=== PATIENT | female | born 1950 | race Caucasian/White ===

== ENCOUNTER → 2018-07-19 09:37 | Outpatient (CLI) | payer OTHER, SELFPAY ==
--- NOTE | 2018-07-19 | DI.MG.S_ITS ---
BILATERAL DIGITAL SCREENING MAMMOGRAM 3D/2D WITH CAD WITH AUGMENTATION: 07/19/2018 CLINICAL: Routine screening. Family history of breast cancer. Comparison is made to exams dated: 07/06/2017 mammogram, 05/12/2016 mammogram, and 04/30/2015 mammogram - [facility]. The tissue of both breasts is heterogeneously dense. This may lower the sensitivity of mammography. Current study was also evaluated with a Computer Aided Detection (CAD) system. Bilateral breast implants are stable. No significant masses, calcifications, or other findings are seen in either breast. There has been no significant interval change. IMPRESSION: NEGATIVE There is no mammographic evidence of malignancy. A 1 year screening mammogram is recommended. This exam was interpreted at Station ID: [id number]. NOTE: For mammograms, a report in lay terms will be sent to the patient. Approximately 15% of breast malignancies will not be visualized mammographically. In the management of a palpable breast mass, a negative mammogram must not discourage biopsy of a clinically suspicious lesion. Electronically Signed By: Tera martini/davon:07/19/2018 15:52:07 letter sent: Normal Exam ACR BI-RADS Category 1: Negative 3341F
== END ==
PROVIDERS: Family Provider Family Medicine; PCP Family Medicine; Visit Provider Family Medicine
DX: Z12.31 Encounter for screening mammogram for malignant neoplasm of breast (principal); Z80.3 Family history of malignant neoplasm of breast; Z78.0 Asymptomatic menopausal state; Z90.722 Acquired absence of ovaries, bilateral
CPT/HCPCS: 77063; 77067; 77080

== ENCOUNTER 2018-07-26 08:19 | Day surgery (SDC) | payer OTHER, SELFPAY ==
[2018-07-26 09:22] VITALS: BP 134/89; PULSE 104; RESP 16; TEMP 36.6; O2SAT 100; BMI 31.9
[2018-07-26] MEDS: PROPARACAINE 0.5% OPHTH SOL 2 DROPS EYE-OP (09:30)
[2018-07-26] MEDS: CATARACT EYE COMPOUND (10 DROPS/SYRINGE) 3 DROPS EYE-OP (09:36)
[2018-07-26 09:38] VITALS: BMI 31.9
--- NOTE | 2018-07-26 10:07 | P.OP.PRE_ITS ---
Pre-operative Note Interval Note Changes: No
--- NOTE | 2018-07-26 10:07 | PM.PREOP ---
Pre-operative Note Interval Note Changes: No
--- NOTE | 2018-07-26 10:08 | P.OP_ITS ---
Operative Date/Time/Diagnoses Pre-op diagnosis: Nuclear cataract right eye Procedure & Clinicians Procedure: Cataract Surgery Same procedure as scheduled: Yes Surgeon: Howard Cantu Anesthesia Type: MAC +/- and Sedation Operative Notes Procedure in detail: Patient brought to the operating suite. Tetracaine drops placed in the right eye. Patient was prepped and draped in sterile manner. Wire lid speculum was placed in the eye. Betadine drops were placed on the eye. This was irrigated. Lidocaine jelly was placed on the eye. A paracentesis port was created with a side-port blade. 0.1 mL 1% preservative free lidocaine was injected into the anterior chamber. The anterior chamber was deepened with viscoelastic. 2.6 mm keratome was used to create a temporal clear corneal incision. Cystotome and Utrata forceps were used to create continuous tear capsulorrhexis. Balanced salt solution was used to hydro dissect the nucleus. The phacoemulsification handpiece was inserted and the nucleus was removed using the stop and chop technique. The irrigation aspiration handpiece was inserted and the remaining cortex was removed. Anterior chamber was deepened with viscoelastic. An Schwarz ZCB00 intraocular lens with a power of 18.5 was injected into the capsular bag. Irrigation aspiration handpiece was inserted and the remaining viscoelastic was removed. Incision was hydrated with balanced salt solution and found to be leak free with pressure with Weck- Sophy sponges. 0.1 mL Vigamox injected anterior chamber. 0.3 mL Kenalog 10 mg was injected subconjunctivally. Lid speculum was removed. The patient left the operating room in excellent condition. Complications: none Condition: stable Disposition: same day surgery
[2018-07-26] MEDS: PHENYLEPHRINE/LIDOCAINE VIAL (OR) 0.2 ML EYE-OP (10:21)
[2018-07-26] MEDS: MOXIFLOXACIN OPHTH DROPS 3 ML BOTTLE 2 DROPS INJ (10:21)
[2018-07-26] MEDS: CHONDROIDTIN/SOD HYALURONATE 1.05 ML SYRINGE INTRAOCULA (10:22)
[2018-07-26] MEDS: LIDOCAINE JELLY 2% 5 ML 1 APPLIC TOP (10:22)
[2018-07-26] MEDS: TRIAMCINOLONE 50 MG/5 ML VIAL INJ (10:22)
[2018-07-26] MEDS: TETRACAINE 0.5% OPHTH DROPS 15 ML 2 DROPS EYE-RIGHT (10:23)
[2018-07-26] MEDS: BALANCED SALT IRRIG SOLN NO.2 500 ML, EPINEPHrine 1 MG IRR (10:23)
[2018-07-26 10:37] VITALS: BP 143/86; PULSE 99; RESP 16; TEMP 36.6; O2SAT 99
== END 2018-07-26 10:45 ==
LOC: OR 08:21
PROVIDERS: PCP Family Medicine; Visit Provider Ophthalmology
DX: H25.11 Age-related nuclear cataract, right eye (principal); I10 Essential (primary) hypertension; M79.7 Fibromyalgia; R51 Headache
CPT/HCPCS: J0171; J2250; J3010; J3301

== ENCOUNTER 2018-08-09 07:24 | Day surgery (SDC) | payer OTHER, SELFPAY ==
[2018-08-09] MEDS: PROPARACAINE 0.5% OPHTH SOL 2 DROPS EYE-OP (07:50)
[2018-08-09 07:51] VITALS: BP 147/90; PULSE 90; RESP 16; TEMP 36.2; O2SAT 100; BMI 31.9
[2018-08-09] MEDS: CATARACT EYE COMPOUND (10 DROPS/SYRINGE) 3 DROPS EYE-OP (07:54)
--- NOTE | 2018-08-09 08:56 | P.OP.PRE_ITS ---
Pre-operative Note Interval Note Changes: No
--- NOTE | 2018-08-09 08:56 | PM.PREOP ---
Pre-operative Note Interval Note Changes: No
--- NOTE | 2018-08-09 08:59 | P.OP_ITS ---
Operative Date/Time/Diagnoses Pre-op diagnosis: Nuclear Cataract Left eye Post-op diagnosis: same Procedure & Clinicians Surgeon: Howard Cantu Anesthesia Type: MAC +/- and Sedation Operative Notes Procedure in detail: Patient brought to the operating suite. Tetracaine drops placed in the left eye. Patient was prepped and draped in sterile manner. Wire lid speculum was placed in the eye. Betadine drops were placed on the eye. This was irrigated. Lidocaine jelly was placed on the eye. A paracentesis port was created with a side-port blade. 0.1 mL 1% preservative free lidocaine was injected into the anterior chamber. The anterior chamber was deepened with viscoelastic. 2.6 mm keratome was used to create a temporal clear corneal incision. Cystotome and Utrata forceps were used to create continuous tear capsulorrhexis. Balanced salt solution was used to hydro dissect the nucleus. The phacoemulsification handpiece was inserted and the nucleus was removed using the stop and chop technique. The irrigation aspiration handpiece was inserted and the remaining cortex was removed. Anterior chamber was deepened with viscoelastic. An Schwarz ZCB00 intraocular lens with a power of 18.5 was injected into the capsular bag. Irrigation aspiration handpiece was inserted and the remaining viscoelastic was removed. Incision was hydrated with balanced salt solution and found to be leak free with pressure with Weck- Sophy sponges. 0.1 mL Vigamox injected anterior chamber. 0.3 mL Kenalog 10 mg was injected subconjunctivally. Lid speculum was removed. The patient left the operating room in excellent condition. Complications: none Condition: stable Disposition: same day surgery
[2018-08-09] MEDS: CHONDROIDTIN/SOD HYALURONATE 1.05 ML SYRINGE INTRAOCULA (09:07)
[2018-08-09] MEDS: LIDOCAINE JELLY 2% 5 ML 1 APPLIC TOP (09:07)
[2018-08-09] MEDS: MOXIFLOXACIN OPHTH DROPS 3 ML BOTTLE 2 DROPS INJ (09:08)
[2018-08-09] MEDS: PHENYLEPHRINE/LIDOCAINE VIAL (OR) 0.2 ML EYE-OP (09:08)
[2018-08-09] MEDS: TRIAMCINOLONE 50 MG/5 ML VIAL INJ (09:09)
[2018-08-09] MEDS: TETRACAINE 0.5% OPHTH DROPS 15 ML 2 DROPS EYE-LEFT (09:09)
[2018-08-09] MEDS: BALANCED SALT IRRIG SOLN NO.2 500 ML, EPINEPHrine 1 MG IRR (09:10)
[2018-08-09 09:25] VITALS: BP 125/82; PULSE 86; RESP 16; TEMP 36.2; O2SAT 99
== END 2018-08-09 09:33 ==
LOC: OR 07:25
PROVIDERS: PCP Family Medicine; Visit Provider Ophthalmology
DX: H25.12 Age-related nuclear cataract, left eye (principal); I10 Essential (primary) hypertension; M79.7 Fibromyalgia; R51 Headache
CPT/HCPCS: J0171; J2250; J3010; J3301

== ENCOUNTER → 2018-09-16 09:17 | Outpatient (CLI) | payer OTHER, SELFPAY ==
--- NOTE | 2018-09-16 | DI.ECHO.S_ITS ---
[place] [facility]---------+ [facility] +---------+ : : [id number] : : : : [id number] : : : : Phone: [phone] Echocardiogram Report + + :Name: YONAS ALEX Study Date: 09/16/2018 Height: 68 in : :[facility] Weight: 213 lb : : Gender: Female BSA: 2.1 m2 : :: 1950 Age: 67 yrs BP: 146/72 mmHg: :Reason For Study: Syncope : :Ordering Physician: : :Adilene Kim Performed By: Carmen Dobbins : + + Interpretation Summary The left ventricle is normal in size. The ejection fraction is estimated to be 55-60%. There has been no significant change since the previous study. There are no focal wall motion abnormalities. Diastolic parameters suggest a relaxation abnormality of the left ventricle, consistent with probable normal filling pressures. The right ventricle is normal in size and function. Both atria are normal in size. There is no significant valvular heart disease. The aortic root is normal size. Procedure: A two-dimensional transthoracic echocardiogram with color flow and Doppler was performed. The study quality was technically adequate. Comparison is made with the echocardiogram of 04/24/2011. The patient was in normal sinus rhythm during the exam. Left Ventricle: The left ventricle is normal in size. There is moderate proximal septal thickening noted. There is normal left ventricular wall thickness. The ejection fraction is estimated to be 55-60%. There has been no significant change since the previous study. There are no focal wall motion abnormalities. Diastolic parameters suggest a relaxation abnormality of the left ventricle, consistent with probable normal filling pressures. Right Ventricle: The right ventricle is normal in size and function. Atria: Both atria are normal in size. There is no Doppler evidence for an interatrial shunt. Mitral Valve: The mitral valve is normal in structure and function. There is trace mitral regurgitation. Aortic Valve: The aortic valve is trileaflet. The aortic valve opens well. There is trace aortic regurgitation. Tricuspid Valve: The tricuspid valve leaflets are thin and pliable. There is trace tricuspid regurgitation. The right ventricular systolic pressure is estimated to be at least 30 mmHg based on an estimated right atrial pressure of 8 mm Hg. Pulmonic Valve: The pulmonic valve leaflets are thin and pliable; valve motion is normal. There is mild pulmonic regurgitation. There is no significant valvular heart disease. Great Vessels: The aortic root is normal size. The ascending aorta is at the upper limits of normal in size. The aortic arch is normal in size. The IVC is of normal diameter and collapses less than 50% with a sniff. This suggests a right atrial pressure of 8 mm Hg. Pericardium/ Pleura There is no pericardial effusion. MMode/2D Measurements & Calculations LVIDd: 4.2 cm LVOT diam: 2.2 cm LVIDs: 2.8 cm Ao root diam: 3.1 cm FS: 31.8 % Aortic Jxn: 2.8 cm EPSS: 0.51 cm asc Aorta Diam: 3.3 cm IVSd: 0.92 cm Ao Arch Diam (Prox Trans): 2.9 cm LVPWd: 1.1 cm LV figueroa. diameter/BSA (cm/m^2): 2.0 LV sys. diameter/BSA (cm/m^2): 1.4 LA A2 area: 15.7 cm2 RA long axis: 4.4 cm LA A4 area: 18.6 cm2 RA area: 9.8 cm2 LA length (vol): 4.7 cm RA vol: 18.5 ml LA vol: 52.8 ml RA : 8.8 ml/m2 LA vol index: 25.1 ml/m2 IVC diam: 1.2 cm RVD1 (basal): 3.0 cm RVD2 (mid): 2.7 cm TAPSE: 1.8 cm Doppler Measurements & Calculations Ao V2 max: 91.3 cm/sec LVOT Max Kenroy: 83.0 cm/sec Ao V2 mean: 61.4 cm/sec LV V1 max P.8 mmHg Ao max P.3 mmHg LV V1 VTI: 17.1 cm Ao mean P.7 mmHg GOLD(I,D): 3.1 cm2 Ao V2 VTI: 20.4 cm GOLD(V,D): 3.4 cm2 sev ratio: 0.84 GOLD indexed to BSA (cm^2/m^2): 1.5 MV E max kenroy: 53.7 cm/sec TR max kenroy: 231.6 cm/sec MV A max kenroy: 74.8 cm/sec TR max P.5 mmHg MV E/A: 0.72 PA V2 max: 88.3 cm/sec Med Peak E' Kenroy: 7.3 cm/sec PA V2 mean: 55.1 cm/sec E/E' med: 7.4 PA mean P.4 mmHg MV dec time: 0.16 sec PA Accel Time: 0.11 sec MV P1/2t: 47.6 msec MV /2t max kenroy: 54.0 cm/sec SV(LVOT): 64.3 ml MVA(2t): 4.6 cm2 Reading Physician:CATALINA
== END ==
PROVIDERS: PCP Family Medicine; Visit Provider Family Medicine
DX: I37.1 Nonrheumatic pulmonary valve insufficiency (principal); R55 Syncope and collapse
CPT/HCPCS: 93306

== ENCOUNTER → 2018-11-25 09:39 | Outpatient (CLI) | payer OTHER, SELFPAY ==
--- NOTE | 2018-11-25 | DI.CT.S_ITS ---
PROCEDURE: CT SINUS SCREEN WO CON INDICATIONS: SINUSITIS TECHNIQUE: Noncontrast 3.0 mm axial images acquired from the frontal sinuses to the mid-sella, with coronal and sagittal reformats. For radiation dose reduction, the following was used: automated exposure control, adjustment of mA and/or kV according to patient size. COMPARISON: None. FINDINGS: Image quality: Excellent. Maxillary Sinuses: No bony remodeling or destruction. Sinuses are clear. Ethmoid Air Cells: No bony remodeling or destruction. Sinuses are clear. Sphenoid Sinuses: No bony remodeling or destruction. Sinuses are clear. Frontal Sinuses: No bony remodeling or destruction. Sinuses are clear. Ostiomeatal Complexes: Ostiomeatal complexes are patent. No Dinorah cells. Miscellaneous: Visualized intra-orbital contents are normal. No abraham bullosa or paradoxical turbinate curvature. No nasal septal deviation. IMPRESSION: Unremarkable sinuses. No evidence of acute or chronic sinusitis. Dictated by: Richi Panchal M.D. on 11/25/2018 at 9:16 Approved by: Richi Panchal M.D. on 11/25/2018 at 9:17
== END ==
PROVIDERS: PCP Family Medicine; Visit Provider Family Medicine
DX: J32.9 Chronic sinusitis, unspecified (principal)
CPT/HCPCS: 70486

== ENCOUNTER → 2019-07-14 12:14 | Outpatient (CLI) | payer OTHER, SELFPAY ==
--- NOTE | 2019-07-14 | DI.CT.S_ITS ---
PROCEDURE: CT ABDOMEN PELVIS W CON INDICATIONS: ABDOMINAL PAIN TECHNIQUE: After the administration of oral and intravenous contrast, 5 mm thick sections acquired from the diaphragms to the symphysis. 5 mm thick coronal and sagittal reformats were performed. For radiation dose reduction, the following was used: automated exposure control, adjustment of mA and/or kV according to patient size. COMPARISON: [facility], CT, ABDOMEN/PELVIS WITH CONTRAST, 05/29/2013, 13:17. [facility], CT, ABDOMEN/PELVIS WITH CONTRAST, 10/11/2007, 15:43. FINDINGS: Image quality: Excellent. ABDOMEN: Lung bases: Lung bases are clear. Heart size is normal. Partially visualized bilateral breast implants without evidence of implant rupture. Solid organs: Liver is normal in size and enhancement. Gallbladder has been previously resected. Biliary system is non-dilated. Pancreas enhances normally. Spleen is normal in size and enhancement. No adrenal nodules. Kidneys are normal in size and enhancement, without hydronephrosis. Peritoneum and bowel: Stomach, small bowel, and colon loops are normal in caliber and wall thickness. No free fluid or air. Surgical clips at the right lower quadrant and near the hepatic flexure of the right colon suggest partial prior colectomy and probable prior ileocolonic reanastomosis. Nodes and vessels: No retroperitoneal or mesenteric adenopathy. Aorta and inferior vena cava are normal in caliber. Miscellaneous: No ventral hernias. PELVIS: Genitourinary: Bladder wall thickness is normal. At the left perineum there is an ovoid soft tissue fluid collection sharply demarcated and without hyperemia or adjacent soft tissue fatty edema measuring up to 3.3 cm AP and 2.3 cm transverse (series 2 image 98). Prior hysterectomy. Miscellaneous: No inguinal hernias or adenopathy. Bones: No suspicious bony lesions. No vertebral body compression fractures. IMPRESSION: 1. A definite source of abdominal/pelvic pain is not found. 2. There is a pattern of right-sided pericolonic surgical nina and clips indicating likelihood of prior partial right colectomy and ileocolonic anastomosis. No adenopathy is seen, no operative complication is suspected. 3. Presumed Bartholin's gland cyst left perineum region, measuring up to 3.3 x 2.3 cm. No associated inflammation identified. Dictated by: Dano Fournier M.D. on 07/14/2019 at 14:15 Approved by: Dano Fournier M.D. on 07/14/2019 at 14:20
== END ==
PROVIDERS: PCP Family Medicine; Visit Provider Family Medicine
DX: R10.9 Unspecified abdominal pain (principal)
CPT/HCPCS: 74177; Q9967

== ENCOUNTER → 2019-08-17 11:31 | Outpatient (CLI) | payer OTHER, SELFPAY ==
--- NOTE | 2019-08-17 | DI.MG.S_ITS ---
BILATERAL DIGITAL SCREENING MAMMOGRAM 3D/2D WITH CAD WITH AUGMENTATION: 08/17/2019 CLINICAL: Routine screening. Family history of breast cancer. Comparison is made to exams dated: 07/19/2018 mammogram, 07/06/2017 mammogram, and 05/12/2016 mammogram - [facility]. The tissue of both breasts is heterogeneously dense. This may lower the sensitivity of mammography. Current study was also evaluated with a Computer Aided Detection (CAD) system. Bilateral breast implants are stable. There are benign post operative findings in both breasts. No significant masses, calcifications, or other findings are seen in either breast. There has been no significant interval change. IMPRESSION: There is no mammographic evidence of malignancy. A 1 year screening mammogram is recommended. This exam was interpreted at Station ID: [id number]. NOTE: For mammograms, a report in lay terms will be sent to the patient. Approximately 15% of breast malignancies will not be visualized mammographically. In the management of a palpable breast mass, a negative mammogram must not discourage biopsy of a clinically suspicious lesion. Electronically Signed By: Tera martini/davon:08/17/2019 15:42:09 letter sent: Normal Exam ACR BI-RADS Category 2: Benign Finding(s) 3342F
== END ==
PROVIDERS: PCP Family Medicine; Visit Provider Family Medicine
DX: Z12.31 Encounter for screening mammogram for malignant neoplasm of breast (principal); Z80.3 Family history of malignant neoplasm of breast
CPT/HCPCS: 77063; 77067

== ENCOUNTER → 2020-12-11 10:07 | Outpatient (CLI) | payer OTHER, SELFPAY ==
--- NOTE | 2020-12-11 10:08 | DI.MG.S_ITS ---
BILATERAL DIGITAL SCREENING MAMMOGRAM 3D/2D WITH CAD WITH AUGMENTATION: 12/11/2020 CLINICAL: Routine screening. Family history of breast cancer. Comparison is made to exams dated: 08/17/2019 mammogram, 07/19/2018 mammogram, and 07/06/2017 mammogram - [facility]. The tissue of both breasts is heterogeneously dense. This may lower the sensitivity of mammography. Current study was also evaluated with a Computer Aided Detection (CAD) system. Bilateral breast implants are stable. There are benign calcifications in the left breast. There also are benign post operative findings in both breasts. No significant masses, calcifications, or other findings are seen in either breast. There has been no significant interval change. IMPRESSION: BENIGN There is no mammographic evidence of malignancy. A 1 year screening mammogram is recommended. This exam was interpreted at Station ID: [id number]. NOTE: For mammograms, a report in lay terms will be sent to the patient. Approximately 15% of breast malignancies will not be visualized mammographically. In the management of a palpable breast mass, a negative mammogram must not discourage biopsy of a clinically suspicious lesion. Electronically Signed By: Tera martini/davon:12/11/2020 10:46:56 letter sent: Normal Exam ACR BI-RADS Category 2: Benign Finding(s) 3342F
== END ==
PROVIDERS: PCP Family Medicine; Referring Provider Family Medicine; Visit Provider Family Medicine
DX: Z12.31 Encounter for screening mammogram for malignant neoplasm of breast (principal); Z80.3 Family history of malignant neoplasm of breast
CPT/HCPCS: 77063; 77067

== ENCOUNTER → 2021-05-20 11:06 | Outpatient (CLI) | payer OTHER, SELFPAY ==
--- NOTE | 2021-05-20 | DI.MRI.S_ITS ---
PROCEDURE: MR HEAD/BRAIN WO CON INDICATIONS: Repeated falls TECHNIQUE: Noncontrast axial T1 spin echo, axial T2 fast spin echo, sagittal and axial FLAIR, coronal T2 fast spin echo, axial gradient echo, axial diffusion and ADC through the brain. COMPARISON: [facility], MR, BRAIN WITHOUT CONTRAST, 06/27/2013, 14:10. FINDINGS: Image quality: Excellent. CSF Spaces: Basal cisterns are patent. No extra-axial fluid collections. Ventricles are normal in size and shape. Brain: No intracranial masses or hemorrhage. Mercer/white matter interface is normal. Brainstem appears normal. Diffusion-weighted images demonstrate no acute ischemic insult. No chronic ischemic insults. Normal intravascular flow voids are present. Skull and face: Calvarium has normal marrow signal. Orbits appear normal. Sinuses: Sinuses and mastoids are clear. IMPRESSION: Mild microvascular atherosclerotic change in the deep white matter of each hemisphere. No evidence of trauma, mass, prior stroke, or intracranial hemorrhage. Etiology of repeated falls is not identified, no trauma from falls is found. Dictated by: Dano Fournier M.D. on 05/20/2021 at 11:45 Approved by: Dano Fournier M.D. on 05/20/2021 at 11:46
== END ==
PROVIDERS: PCP Family Medicine; Referring Provider Family Medicine; Visit Provider Family Medicine
DX: R29.6 Repeated falls (principal); R51.9 Headache, unspecified; R26.89 Other abnormalities of gait and mobility
CPT/HCPCS: 70551

== ENCOUNTER → 2021-06-05 15:18 | Outpatient (CLI) | payer OTHER, SELFPAY ==
--- NOTE | 2021-06-05 15:25 | DI.RAD.S_ITS ---
PROCEDURE: XR HIP W PEL IF DONE RT 2V INDICATIONS: RIGHT HIP AND KNEE PAIN S/P FALL TECHNIQUE: AP pelvis with lateral view(s) of the right hip(s). COMPARISON: None. FINDINGS: Bones: No fractures or dislocations. Pelvic ring appears intact. No suspicious bony lesions. Soft tissues: The visualized bowel gas pattern is normal. No suspicious soft tissue calcifications. IMPRESSION: No trauma found. 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 Dictated by: Dano Fournier M.D. on 06/05/2021 at 16:21 Approved by: Dano Fournier M.D. on 06/05/2021 at 16:22
--- NOTE | 2021-06-05 15:25 | DI.RAD.S_ITS ---
PROCEDURE: XR KNEE RT 3V INDICATIONS: RIGHT HIP, KNEE PAIN S/P FALL TECHNIQUE: 3 views of the knee were acquired. COMPARISON: [facility], , KNEE 3V RIGHT, 09/26/2013, 12:09. FINDINGS: Bones: No fractures or dislocations. No suspicious bony lesions. Superior patellar spur. Lateral patellar tilt. Mild narrowing of the medial joint space. Soft tissues: No joint effusion. No suspicious soft tissue calcifications. IMPRESSION: Mild right knee joint degeneration. Slight interval progression since 09/26/13. Dictated by: Matteo Lombardi M.D. on 06/05/2021 at 16:24 Approved by: Matteo Lombardi M.D. on 06/05/2021 at 16:24
== END ==
PROVIDERS: PCP Family Medicine; Referring Provider Family Medicine; Visit Provider Family Medicine
DX: R29.6 Repeated falls (principal); M25.551 Pain in right hip; M25.561 Pain in right knee; M17.11 Unilateral primary osteoarthritis, right knee; M16.0 Bilateral primary osteoarthritis of hip
CPT/HCPCS: 73502; 73562

== ENCOUNTER → 2021-07-31 13:38 | Outpatient (CLI) | payer OTHER, SELFPAY ==
--- NOTE | 2021-07-31 | DI.MRI.S_ITS ---
PROCEDURE: MR HIP RT W CON INDICATIONS: RIGHT HIP PAIN TECHNIQUE: After the administration of 10 mL of dilute intra-articular Gadolinium contrast, coronal STIR of the bony pelvis; coronal and oblique axial T1 spin echo with fat saturation, axial T2 fast spin echo with fat saturation, sagittal T1 spin echo with and without fat saturation of the involved hip. COMPARISON: None. FINDINGS: Image quality: Excellent. Bones and joints: Mild to moderate right hip joint osteoarthritic changes are seen with superior joint space narrowing and subchondral sclerosis. Lateral marginal osteophyte formation is noted in superior right hip joint which can be seen associated with pincer type femoral acetabular impingement. No intraosseous lesions or fractures. No avascular necrosis of the femoral head. The visualized lower lumbar spine appears normally aligned. The ligamental, neck, and labral plicae appear normal where visualized. Tendons and ligaments: The gluteus medius and minimus tendons appear intact, without associated muscle atrophy. The nearby proximal iliotibial band also appears intact. The iliopsoas tendon appears intact, without adjacent bursal fluid collections or evidence for impingement syndrome. The origin of the hamstring tendon is intact at the ischial tuberosity, as well as the associated sacrotuberous ligament. The straight and reflected heads of the rectus femoris muscle origin appear intact, as well as the conjoint tendon. The ligamentum teres appears intact where visualized. Labrum and cartilage: Signal abnormality and contour irregularity involving superior anterior right hip labrum is seen suggestive of superior anterior labral tear. Thinning of articulating cartilages of femoral head is seen. The alpha angle of the femur is within normal limits at less than 55 degrees. Soft tissues: Visualized muscles demonstrate normal bulk and internal signal. Quadratus femoris muscle demonstrates no internal edema to suggest ischiofemoral impingement. The proximal sciatic neurovascular bundle appears normal adjacent to the hamstring tendons. No free pelvic fluid. Bladder wall thickness is normal. Genitourinary structures and bowel loops appear normal where visualized. IMPRESSION: 1. 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 No fracture or dislocation. No evidence of avascular necrosis of femoral head. 2. No gross muscle or tendon signal abnormality is seen in right hip. 3. Contour irregularity and signal abnormality with subtle contrast extension in superior anterior right hip labrum concerning for focal labral tear. Dictated by: Naresh Crowell M.D. on 07/31/2021 at 16:54 Approved by: Naresh Crowell M.D. on 07/31/2021 at 16:57
--- NOTE | 2021-07-31 | DI.RAD.S_ITS ---
PROCEDURE: FL HIP INJECTION MR/CT RT INDICATIONS: RIGHT HIP PAIN TECHNIQUE: The indications, alternatives, benefits, risks, and complications of the procedure were explained to the patient. Written informed consent was obtained and placed in the chart. The hip was examined fluoroscopically with the legs fixed in slight internal rotation, and a site for needle placement chosen for entry into the hip joint from an anterior approach. Care was taken to locate the common femoral artery and vein beforehand. The skin was prepped and draped in a sterile fashion, and 1% Lidocaine infiltrated from skin down to joint capsule. A spinal needle was inserted into the joint, and a small amount of iodinated contrast media injected to confirm intra-articular placement of the needle tip. This was followed by approximately 10 mL dilute solution of a gadolinium containing MR contrast agent. The needle was removed and a dressing was applied. The patient was given postprocedural instructions and sent to the MR suite for imaging. COMPARISON: [facility], , MR HIP RT W CON, 07/31/2021, 14:57. FINDINGS: A single fluoroscopic spot image demonstrates intra-articular location of injected iodinated contrast. IMPRESSION: Successful fluoroscopically guided administration of dilute Gadolinium solution into the hip joint for MR arthrogram. Dictated by: Patria Pak M.D. on 07/31/2021 at 18:15 Approved by: Patria Pak M.D. on 07/31/2021 at 18:16
== END ==
PROVIDERS: PCP Family Medicine; Referring Provider Physician Assistant; Visit Provider Physician Assistant
DX: M25.551 Pain in right hip (principal)
CPT/HCPCS: 27093; 73722; 77002

== ENCOUNTER → 2021-09-10 14:08 | Outpatient (CLI) | payer OTHER, SELFPAY ==
--- NOTE | 2021-09-10 | DI.CT.S_ITS ---
PROCEDURE: CT PEL WO CON INDICATIONS: Other specified joint disorders, unspecified hip TECHNIQUE: Noncontrast 3 mm axial sections acquired through the bony pelvis, with coronal and sagittal reformatting. COMPARISON: [facility], CT, CT ABDOMEN PELVIS W CON, 07/14/2019, 13:01. [facility], MR, MR HIP RT W CON, 07/31/2021, 14:57. FINDINGS: Image quality: Excellent. Bones: No acute, displaced fracture or dislocation. Mild to moderate periarticular osteophytosis about the bilateral hips. The joint spaces are maintained. Disc osteophyte complex at L5-S1. Articulation of the L4-5 spinous processes. Soft tissues: No significant abnormality. Fatty atrophy of the right rectus muscle. IMPRESSION: No acute osseous abnormality. Dictated by: Joe Jeffrey M.D. on 09/10/2021 at 14:39 Approved by: Joe Jeffrey M.D. on 09/10/2021 at 14:45
== END ==
PROVIDERS: PCP Family Medicine; Referring Provider Orthopaedic Surgery; Visit Provider Orthopaedic Surgery
DX: M25.859 Other specified joint disorders, unspecified hip (principal)
CPT/HCPCS: 72192

== ENCOUNTER → 2022-01-13 07:48 | Outpatient (CLI) | payer OTHER, SELFPAY ==
--- NOTE | 2022-01-13 | DI.MG.S_ITS ---
BILATERAL DIGITAL SCREENING MAMMOGRAM 3D/2D WITH CAD WITH AUGMENTATION: 01/13/2022 CLINICAL: Routine screening. Family history of breast cancer. Comparison is made to exams dated: 12/11/2020 mammogram, 08/17/2019 mammogram, 07/19/2018 mammogram, and 07/06/2017 mammogram - [facility]. There are scattered fibroglandular elements in both breasts. Current study was also evaluated with a Computer Aided Detection (CAD) system. Bilateral breast implants are stable and intact. There are benign calcifications in the left breast. No significant masses, calcifications, or other findings are seen in either breast. There has been no significant interval change. IMPRESSION: BENIGN There is no mammographic evidence of malignancy. A 1 year screening mammogram is recommended. This exam was interpreted at Station ID: [id number]. NOTE: For mammograms, a report in lay terms will be sent to the patient. Approximately 15% of breast malignancies will not be visualized mammographically. In the management of a palpable breast mass, a negative mammogram must not discourage biopsy of a clinically suspicious lesion. Electronically Signed By: Panda partida/davon:01/13/2022 08:49:42 letter sent: Normal Exam ACR BI-RADS Category 2: Benign Finding(s) 3342F
== END ==
PROVIDERS: PCP Family Medicine; Referring Provider Family Medicine; Visit Provider Family Medicine
DX: Z12.31 Encounter for screening mammogram for malignant neoplasm of breast (principal); Z80.3 Family history of malignant neoplasm of breast
CPT/HCPCS: 77063; 77067

== ENCOUNTER → 2022-01-28 11:10 | Outpatient (CLI) | payer OTHER, SELFPAY ==
--- NOTE | 2022-02-11 10:44 | PM.CARDMON.1 ---
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 Date Patient Seen: 01/28/22 Requesting provider: Adilene Kim Indication: Tachycardia Duration of monitoring (days): 7 Diary information: There were 6 patient triggered events and 7 patient diary entries All of these patient events were variably associated with (within 45 seconds) sinus rhythm and PVCs Data: Minimum heart rate identified was 66 beats per minute at 19:59 on 01/31/2022 Maximum sinus heart rate was 151 beats per minute at 17:45 on 01/30/2022 Maximum overall heart rate was 169 beats per minute at 08:06 on 02/03/2022 during a run of SVT Less than 1% of identified beats were ventricular or supraventricular ectopic in origin, which would classify them as rare. There were 5 runs of SVT the longest being 7 beats in duration the fastest being a 5 beat run at 169 beats per minute There were no pauses of 3 seconds or longer or episodes of atrial fibrillation identified on this study Impression: 7 day playground monitor demonstrating rare PVCs as a possible source of patient's symptoms. Clinical correlation suggested
== END ==
PROVIDERS: Family Provider Family Medicine; PCP Family Medicine; Referring Provider Family Medicine; Visit Provider Family Medicine
DX: R00.0 Tachycardia, unspecified (principal)
CPT/HCPCS: 93242; 93244

== ENCOUNTER → 2022-04-09 10:19 | Outpatient (CLI) | payer OTHER, SELFPAY ==
--- NOTE | 2022-04-09 | DI.ECHO.S_ITS ---
[facility] +---------+ : : [address] : : : : [id number] : : : : Phone: [phone]+ Echocardiogram Report + + :Name: YONAS ALEX Study Date: 04/09/2022 Height: 68 in : :[facility] ReadingLocation: Weight: 210 lb : : Gender: Female BSA: 2.1 m2 : :: 1950 Age: 71 yrs BP: 140/88 mmHg: :Reason For Study: Tachycardia : :Ordering Physician: SKY, : :RAEGAN Performed By: Korey Barron : :Referring: RAEGAN SWANSON : + + Interpretation Summary 1) Normal left ventricular thickness, size, wall motion, and systolic function (EF 60-65%). 2) Normal right ventricular size and function. 3) No significant valvular abnormalities. 4) Compared to the Echo done 09/16/2018, no significant change. Procedure: A two-dimensional transthoracic echocardiogram with color flow and Doppler was performed. The study quality was technically adequate. Comparison is made with the echocardiogram of 09/16/2018. The patient was in normal sinus rhythm during the exam. Left Ventricle: The left ventricle is normal in size and wall thickness. Left ventricular systolic function is normal. The ejection fraction is estimated to be 60-65%. There are no focal wall motion abnormalities. Diastolic function could not be accurately assessed due to unobtainable data. Right Ventricle: The right ventricle is normal in size and function. Atria: Both atria are normal in size. The interatrial septum grossly appears intact with no obvious evidence for an atrial septal defect. Mitral Valve: The mitral valve is normal in structure and function. There is no mitral regurgitation noted. Aortic Valve: The aortic valve is normal in structure and function. There is no aortic valve stenosis. No aortic regurgitation is present. Tricuspid Valve: The tricuspid valve is normal in structure and function. No tricuspid regurgitation. Pulmonary artery pressures cannot be estimated because of the lack of a measurable TR jet velocity. Pulmonic Valve: The pulmonic valve is not well seen, but is grossly normal. There is mild pulmonic regurgitation. Great Vessels: The aortic root is normal size. The dimensions of the ascending aorta are normal. The IVC is of normal diameter and collapses greater than 50% with a sniff. This suggests a low right atrial pressure of 3 mm Hg. Pericardium/ Pleura There is no pericardial effusion. MMode/2D Measurements & Calculations LVIDd: 4.0 cm LVOT diam: 2.0 cm LVIDs: 2.6 cm Ao root diam: 2.8 cm FS: 35.0 % asc Aorta Diam: 3.5 cm IVSd: 0.90 cm LVPWd: 0.80 cm LV figueroa. diameter/BSA (cm/m^2): 1.9 LV sys. diameter/BSA (cm/m^2): 1.2 LA dimension: 3.1 cm RA long axis: 4.7 cm LA A2 area: 14.3 cm2 LA A4 area: 12.8 cm2 LA length (vol): 4.7 cm LA vol: 33.0 ml LA vol index: 15.8 ml/m2 TAPSE_phl: 2.2 cm Doppler Measurements & Calculations Ao V2 max: 121.0 cm/sec LVOT Max Kenroy: 95.3 cm/sec Ao V2 mean: 87.8 cm/sec LV V1 max P.6 mmHg Ao max P.0 mmHg LV V1 VTI: 19.1 cm Ao mean P.0 mmHg GOLD(I,D): 2.6 cm2 Ao V2 VTI: 22.9 cm GOLD(V,D): 2.5 cm2 sev ratio: 0.83 GOLD indexed to BSA (cm^2/m^2): 1.3 MV E max kenroy: 58.3 cm/sec SV(LVOT): 60.0 ml MV A max kenroy: 97.7 cm/sec MV E/A: 0.60 Med Peak E' Kenroy: 7.0 cm/sec E/E' med: 8.4 Lat Peak E' Kenroy: 8.1 cm/sec E/E' lat: 7.2 E/e' average: 7.8 MV dec time: 0.32 sec AV VR_phl: 0.79 MV P1/2t-pr_phl: 94.0 msec GOLD(VTI)/BSA_phl: 1.3 Reading Physician:12:35 PM
== END ==
PROVIDERS: Family Provider Family Medicine; PCP Family Medicine; Referring Provider Family Medicine; Visit Provider Family Medicine
DX: I37.1 Nonrheumatic pulmonary valve insufficiency (principal); R00.0 Tachycardia, unspecified
CPT/HCPCS: 93306

== ENCOUNTER 2022-06-21 18:50 | Emergency (ER) | payer OTHER, SELFPAY ==
[2022-06-21] VITALS (15 sets, daily range): BP systolic 119–148; BP diastolic 59–85; PULSE 93–111; RESP 15–25; TEMP 38.8; O2SAT 95–99; BMI 32.2
--- NOTE | 2022-06-21 19:11 | DI.RAD.S_ITS ---
PROCEDURE: XR CHEST 2V INDICATIONS: cough TECHNIQUE: 2 views of the chest were acquired. COMPARISON: Located Within [facility], , CHEST FOR PICC PLACEMENT, 06/26/2013, 21:47. FINDINGS: Surgical changes and devices: None. Lungs and pleura: Lungs are clear. No pleural effusions or pneumothorax. Mediastinum: Mediastinal contours are normal. Heart size is normal. Bones and chest wall: No suspicious bony abnormalities. Soft tissues appear unremarkable. IMPRESSION: No acute process. Dictated by: Patria Pak M.D. on 06/21/2022 at 19:50 Approved by: Patria Pak M.D. on 06/21/2022 at 19:50
--- NOTE | 2022-06-21 19:14 | ED.URI ---
HPI - URI/Sore Throat General Chief Complaint: Upper Respiratory Symptoms Stated Complaint: Cough/Dizzy/Light Headed Time Seen by Provider: 06/21/22 19:14 Source: patient Mode of arrival: Ambulatory History of Present Illness HPI Narrative: 71F nonsmoker without much in the way of any chronic medical history presents with 3-4 days cough, sore throat, stiff neck, body aches, chills, congestion. She is had no dysuria, frequency or urgency. She has at least 1 home COVID test that is negative. She denies any recent travel, history of blood clot or cancer. She has been around other people with possible similar symptoms but does state that she is largely at home body. She is not significantly short of breath but does have a harsh sounding and often productive cough. She does admit to some bronchospasm and states that a deep breath makes her want to cough more. She denies any hemoptysis. She denies any other chest pain or exertional symptoms. She is not dizzy nor weak or lightheaded. She is had no GI symptoms such as nausea, vomiting or diarrhea. She denies any dysuria, frequency or urgency. Related Data Home Medications Medication Instructions Recorded Confirmed aspirin 81 mg chewable tablet 1 tab PO DAILY ##0 10/26/11 12/07/18 BUPROPION HCL (WELLBUTRIN XL) 300 mg PO QDAY ##0 06/16/13 12/07/18 estradiol 1 mg tablet (Estrace) 0.5 mg PO QDAY #0 tabs 06/16/13 12/07/18 losartan 100 mg tablet 100 mg PO QDAY #0 tabs 06/16/13 12/07/18 metoprolol tartrate 25 mg tablet 25 mg PO QDAY ##0 06/16/13 12/07/18 lorazepam 0.5 mg tablet 0.5 mg PO Q4HP PRN Anxiety 07/26/18 12/07/18 Previous Rx's Medication Instructions Recorded amoxicillin 500 mg capsule 1,000 mg PO Q8H 5 days #30 caps 06/22/22 benzonatate 200 mg capsule 200 mg PO BID PRN cough #20 caps 06/22/22 promethazine 6.25 mg-codeine 10 5 ml PO Q4-6H PRN cough #473 mL 06/22/22 mg/5 mL syrup Allergies Allergy/AdvReac Type Severity Reaction Status Date / Time calcium Allergy Severe TINGLING Verified 06/21/22 19:22 HANDS, HOT, ITCHY, SWELLING (FROM TPN) magnesium Allergy Severe TINGLING Verified 06/21/22 19:22 HANDS, HOT, ITCHY, SWELLING (FROM TPN) potassium Allergy Severe TINGLING Verified 06/21/22 19:22 HANDS, HOT, ITCHY, SWELLING (FROM TPN) sodium acetate Allergy Severe TINGLING Verified 06/21/22 19:22 HANDS, HOT, ITCHY, SWELLING (FROM TPN) Review of Systems Review of Systems Narrative: GENERAL: See HPI HEENT: See HPI RESPIRATORY: See HPI CARDIOVASCULAR: See HPI GASTROINTESTINAL: Denies nausea, vomiting, abdominal pain, diarrhea, constipation, melena. : Denies dysuria, frequency, incontinence, hematuria, urinary retention. MUSCULOSKELETAL: denies weakness, joint pain, or bony pain SKIN: Denies rash, skin lesions, or other NEUROLOGIC: Denies weakness, headache, numbness, change in speech, confusion, seizures, incoordination. PSYCHIATRIC: No concerning psychosocial issues. 12 point review of systems is negative except for those stated above Patient History Social History household members: spouse Smoking Status: Never smoker Smoking Status: Never smoker alcohol intake frequency: 0-2 drinks per day Substance Use Type: does not use Exam Narrative Exam Narrative: GENERAL: [71] year old patient appears stated age. Well-developed patient, in mild distress. Frequent harsh sounding cough, clearly worsened by deep breath HEAD: Atraumatic. Normocephalic. EYES: Pupils equal round and reactive. Extraocular motions intact. No scleral icterus. No injection or drainage. ENT: Nose without bleeding, purulent drainage. Throat without erythema, tonsillar hypertrophy or exudate. Airway patent. NECK: Trachea midline. Non tender CARDIOVASCULAR: Regular rhythm but slightly tachycardic without murmurs, gallops, or rubs. RESPIRATORY: No obvious rales or rhonchi, there is some bronchospasm and wheezes in all rico, no significant work of breathing, use of accessory muscles, tachypnea or hypoxemia GASTROINTESTINAL: Abdomen soft, non-tender, nondistended. EXTREMITIES: No edema or joint tenderness. BACK: Nontender without deformity or crepitance. No flank tenderness. NEURO: AOx3. SKIN: No rash or erythema of visible areas Initial Vital Signs Initial Vital Signs: Vital Signs Temperature 102 F H 06/21/22 18:58 Pulse Rate 106 H 06/21/22 18:58 Respiratory Rate 16 06/21/22 18:58 Blood Pressure 148/85 H 06/21/22 18:58 Pulse Oximetry 99 06/21/22 18:58 Oxygen Delivery Method 06/21/22 18:58 Scores CURB-65 Confusion: No BUN >19mg/dL (>7mmol/L): No Respiratory rate greater or equal to 30: No SBP <90mmHg or DBP less or equal to 60mmHg: No Age 65 or Older: Yes CURB-65 Total: 1 Score 0-1 Outpatient care, Score 2 Inpt vs. Obs, Score 3 or over Inpt admit with ICU for score of 4-5 Course Orders Ordered: ED Orders 06/21/22 19:06 COVID19 -Nasal RAPID/Pre-Proc Stat 06/21/22 19:10 RT Consult Eval and Treat NOW 06/21/22 19:11 Chest [XR chest 2V] Stat 06/21/22 19:20 Complete Blood Count AUTO DIFF Stat Comprehensive Metabolic Panel Stat D Dimer Stat Lactate (Lactic Acid) Stat Lipase Stat Procalcitonin Stat 06/21/22 19:23 EKG-12 Lead Stat 06/21/22 20:05 Blood Culture Stat 06/21/22 20:38 Respiratory Panel (Film Array) Stat 06/21/22 22:50 CT angio chest PE protocol Stat Discontinued Medications Acetaminophen/Codeine Phosphate (Acetaminophen/Codeine Soln 5 Ml Solution) 10 ml PO NOW ONE Stop: 06/22/22 00:24 Albuterol (Albuterol Hfa Prepack) 1 box MISC SEEINSTR ONE Stop: 06/22/22 00:24 Last Admin: 06/22/22 00:28 Dose: 1 box Albuterol/Ipratropium (Albuterol/Ipratropium 3 Ml Ampul) 3 ml INH NOW ONE Stop: 06/21/22 22:27 Last Admin: 06/21/22 22:41 Dose: 3 ml Documented By: AVELINO Sodium Chloride (Normal Saline 0.9%) 1,000 mls @ 1,000 mls/hr IV BOLUS ONE Stop: 06/21/22 20:09 Last Infusion: 06/21/22 20:35 Dose: 0 mls/hr Documented By: Admin: 06/21/22 19:23 Dose: 1,000 mls/hr Documented By: AVELINO Sodium Chloride (Normal Saline 0.9%) 1,000 mls @ 1,000 mls/hr IV BOLUS ONE Stop: 06/21/22 23:25 Last Infusion: 06/22/22 00:13 Dose: 0 mls/hr Documented By: Admin: 06/21/22 22:42 Dose: 1,000 mls/hr Documented By: AVELINO Ceftriaxone Sodium 1,000 mg/ (Sodium Chloride) 100 mls @ 200 mls/hr IV NOW ONE Stop: 06/21/22 22:27 Last Infusion: 06/21/22 23:15 Dose: 0 mls/hr Documented By: Admin: 06/21/22 22:42 Dose: 200 mls/hr Documented By: AVELINO Vital Signs Vital signs: Vital Signs - 8 hr 06/21/22 18:58 06/21/22 19:26 06/21/22 19:29 Temperature 102 F H Pulse Rate 106 H 103 H 102 H Respiratory Rate 16 Blood Pressure 148/85 H Pulse Oximetry 99 96 96 Oxygen Delivery Method Room Air 06/21/22 19:29 06/21/22 19:30 06/21/22 19:30 Temperature Pulse Rate 102 H Respiratory Rate Blood Pressure 134/67 143/66 H Pulse Oximetry 96 Oxygen Delivery Method 06/21/22 19:52 06/21/22 19:52 06/21/22 20:00 Temperature Pulse Rate 97 H Respiratory Rate 21 Blood Pressure 134/69 135/65 Pulse Oximetry 97 Oxygen Delivery Method 06/21/22 20:00 06/21/22 20:30 06/21/22 20:30 Temperature Pulse Rate 97 H 95 H Respiratory Rate 20 19 Blood Pressure 127/66 Pulse Oximetry 96 97 Oxygen Delivery Method 06/21/22 22:41 06/21/22 21:00 06/21/22 21:00 Temperature Pulse Rate 95 H 96 H Respiratory Rate 19 25 H Blood Pressure 126/82 Pulse Oximetry 97 97 Oxygen Delivery Method Room Air 06/21/22 21:30 06/21/22 21:30 06/21/22 22:00 Temperature Pulse Rate 95 H Respiratory Rate 20 Blood Pressure 134/59 L 126/69 Pulse Oximetry Oxygen Delivery Method 06/21/22 22:00 06/21/22 22:30 06/21/22 22:30 Temperature Pulse Rate 93 H 104 H Respiratory Rate 16 15 Blood Pressure 119/60 Pulse Oximetry Oxygen Delivery Method 06/21/22 23:08 06/21/22 23:30 06/21/22 23:39 Temperature Pulse Rate 111 H 103 H Respiratory Rate 21 Blood Pressure 119/60 Pulse Oximetry 97 95 Oxygen Delivery Method 06/21/22 23:39 06/22/22 00:00 06/22/22 00:00 Temperature Pulse Rate 106 H 101 H Respiratory Rate 24 22 Blood Pressure 119/58 L Pulse Oximetry 97 96 Oxygen Delivery Method 06/22/22 00:20 Temperature 98.8 F Pulse Rate Respiratory Rate Blood Pressure Pulse Oximetry Oxygen Delivery Method MDM - URI/Sore Throat Lab Data Result diagrams: 06/21/22 19:20 06/21/22 19:20 Labs: Lab Results 06/21/22 06/21/22 06/21/22 Range/Units 19:06 19:20 19:20 WBC 15.3 H (4.5-11.0) X10^3/uL RBC 4.38 (4.0-5.2) X10^6/uL Hgb 12.8 (12.0-16.0) g/dL Hct 37.6 (36-46) % MCV 85.9 (80-100) fL MCH 29.4 (26-34) PG MCHC 34.2 (30-36) % RDW 13.7 (11.6-14.8) % Plt Count 231 (150-400) X10^3/uL Neut % (Auto) 76.3 H (50-75) % Lymph % (Auto) 13.6 L (25-40) % Bracken % (Auto) 7.3 (3-14) % Eos % (Auto) 2.4 (2-4) % Baso % (Auto) 0.4 (0-2) % Neut # (Auto) 34325 H (4895-0564) /uL Lymph # (Auto) 2100 (2835-9652) /uL Bracken # (Auto) 1100 H (0-900) /uL Eos # (Auto) 400 (0-450) /uL Baso # (Auto) 100 (0-100) /uL D-Dimer (<500) ng/ml Sodium 138 (137-145) mmol/L Potassium 3.9 (3.4-5.1) mmol/L Chloride 101 (98-107) mmol/L Carbon Dioxide 26 (22-32) mmol/L BUN 16 (7-17) mg/dL Creatinine 0.97 (0.52-1.04) mg/dL Estimated GFR > 60 (>60) mL/min BUN/Creatinine Ratio 16.5 (6-22) Glucose 126 H (80-110) mg/dL Lactate (0.7-2.1) mmol/L Calcium 8.8 (8.4-10.2) mg/dL Total Bilirubin 0.6 (0.2-1.3) mg/dL AST 26 (14-36) IU/L ALT 28 (<35) IU/L Alkaline Phosphatase 110 (38-126) U/L Total Protein 8.0 (6.3-8.2) g/dL Albumin 4.1 (3.5-5.0) g/dL Globulin 3.9 (1.7-4.1) g/dL Albumin/Globulin Ratio 1.1 (1.0-2.8) Lipase 40 (23-300) U/L Procalcitonin 0.13 (<0.5) ng/mL Chlamy pneumoniae PCR (Not Detect) Adenovirus (PCR) (Not Detect) B. pertussis DNA (PCR) (Not Detecte) B.parapertussis DNA PCR (Not Detecte) Coronavirus OC43 (PCR) (Not Detect) Coronavirus HKU1 (PCR) (Not Detect) Coronavirus 229E (PCR) (Not Detect) SARS-CoV-2 (PCR) Negative (Negative) Coronavirus NL63 (PCR) (Not Detect) Human Metapneumovir PCR (Not Detect) Influenza Type A (PCR) (Not Detect) Influenza Type B (PCR) (Not Detect) M. pneumoniae (PCR) (Not Detect) Parainfluenza 1 (PCR) (Not Detect) Parainfluenza 2 (PCR) (Not Detect) Parainfluenza 3 (PCR) (Not Detect) Parainfluenza 4 (PCR) (Not Detect) RSV (PCR) (Not Detect) Entero/Rhino (PCR) (Not Detect) 06/21/22 06/21/22 06/21/22 Range/Units 19:20 19:20 20:38 WBC (4.5-11.0) X10^3/uL RBC (4.0-5.2) X10^6/uL Hgb (12.0-16.0) g/dL Hct (36-46) % MCV (80-100) fL MCH (26-34) PG MCHC (30-36) % RDW (11.6-14.8) % Plt Count (150-400) X10^3/uL Neut % (Auto) (50-75) % Lymph % (Auto) (25-40) % Bracken % (Auto) (3-14) % Eos % (Auto) (2-4) % Baso % (Auto) (0-2) % Neut # (Auto) (0700-4220) /uL Lymph # (Auto) (6585-7618) /uL Bracken # (Auto) (0-900) /uL Eos # (Auto) (0-450) /uL Baso # (Auto) (0-100) /uL D-Dimer 2752 H (<500) ng/ml Sodium (137-145) mmol/L Potassium (3.4-5.1) mmol/L Chloride (98-107) mmol/L Carbon Dioxide (22-32) mmol/L BUN (7-17) mg/dL Creatinine (0.52-1.04) mg/dL Estimated GFR (>60) mL/min BUN/Creatinine Ratio (6-22) Glucose (80-110) mg/dL Lactate 1.0 (0.7-2.1) mmol/L Calcium (8.4-10.2) mg/dL Total Bilirubin (0.2-1.3) mg/dL AST (14-36) IU/L ALT (<35) IU/L Alkaline Phosphatase (38-126) U/L Total Protein (6.3-8.2) g/dL Albumin (3.5-5.0) g/dL Globulin (1.7-4.1) g/dL Albumin/Globulin Ratio (1.0-2.8) Lipase (23-300) U/L Procalcitonin (<0.5) ng/mL Chlamy pneumoniae PCR Not detected (Not Detect) Adenovirus (PCR) Not detected (Not Detect) B. pertussis DNA (PCR) Not detected (Not Detecte) B.parapertussis DNA PCR Not detected (Not Detecte) Coronavirus OC43 (PCR) Not detected (Not Detect) Coronavirus HKU1 (PCR) Not detected (Not Detect) Coronavirus 229E (PCR) Not detected (Not Detect) SARS-CoV-2 (PCR) Not detected (Negative) Coronavirus NL63 (PCR) Not detected (Not Detect) Human Metapneumovir PCR Not detected (Not Detect) Influenza Type A (PCR) Not detected (Not Detect) Influenza Type B (PCR) Not detected (Not Detect) M. pneumoniae (PCR) Not detected (Not Detect) Parainfluenza 1 (PCR) Not detected (Not Detect) Parainfluenza 2 (PCR) Not detected (Not Detect) Parainfluenza 3 (PCR) Not detected (Not Detect) Parainfluenza 4 (PCR) Not detected (Not Detect) RSV (PCR) Not detected (Not Detect) Entero/Rhino (PCR) Not detected (Not Detect) Point of Care Testing Rapid Strep A Negative Imaging Data Chest x-ray: Radiologist's Impression: Marilia Craft??71??F??1950 ? Allergy/Adv: calcium, magnesium, potassium, sodium acetate (More??) Close Chest X-Ray (Signed) Patria Pak - 06/21/22 Echocardiogram Ultrasound (Signed) Jacqueline Burnett - 04/09/22 Mammogram Screening (Signed) KatjaPanda - 01/13/[address] (Signed) Joe Jeffrey - 09/10/21 Injection for MRI Arthrogram (Signed) Patria Pak - 07/31/21 Hip MRI (Signed) Naresh Crowell - 07/31/21 Knee X-Ray (Signed) Matteo Lombardi - 06/05/21 Hip X-Ray (Signed) Dano Fournier - 06/05/21 Brain MRI (Signed) Dano Fournier - 05/20/21 Mammogram Screening (Signed) Tera Lee - 12/11/20 Mammogram Screening (Signed) Tera Lee - 08/17/19 Abdomen/Pelvis CT (Signed) Dano Fournier - 07/14/[address] (Signed) Richi Panchal - 11/25/18 Echocardiogram Ultrasound (Signed) Silverio Kellogg - 09/16/18 Mammogram Screening (Signed) Tera Lee - 07/19/18 Abdomen Ultrasound (Signed) Christopher Metzger - 02/09/18 Launch?[facility] [address] [address] XRay Report Signed Patient: Marilia Craft MR#: [id number] : 1950 Acct:[id number] Age/Sex: 71 / F Date of Service: 06/21/22 Loc: ED Accession Number: [id number] ?? Procedure: XR chest 2V Ordering Provider: Fran Coughlin D.O. PROCEDURE:? XR CHEST 2V ? INDICATIONS:? cough ? TECHNIQUE:? 2 views of the chest were acquired.? ? COMPARISON:[facility], , CHEST FOR PICC PLACEMENT, 06/26/2013, 21:47. ? FINDINGS:? ? Surgical changes and devices:? None.? ? Lungs and pleura:? Lungs are clear.? No pleural effusions or pneumothorax.? ? Mediastinum:? Mediastinal contours are normal.? Heart size is normal.? ? Bones and chest wall:? No suspicious bony abnormalities.? Soft tissues appear unremarkable.? ? IMPRESSION:? No acute process. ? ? Dictated by: Patria Pak M.D. on 06/21/2022 at 19:50 ? ? Approved by: Patria Pak M.D. on 06/21/2022 at 19:50 ? CT scan - chest: Radiologist's Impression: 34 ? Fran Coughlin DO [facility] Routine Call Back Main ED ?2? My List ?3? Waiting ?0? Surge ED ?0? R08? Venancio? Marilia? 71 F? With Doctor? 5h 20m? 3-Urgent? ?? Upper Respiratory Symptoms? Cough/Dizzy/Light Headed? Sepsis, C19S/S? 06/21/22 19:14? REG ER? Draft? Fran Pedroza ? Order BP Pulse 95 Resp 19 Temp O2 Sat 97% (RA) Lipase Sta... Procalcito... ?Complete B... ?Chem Lactate (L... POC/FABIOLA COVID19 -N... Imaging Respirator... ?D Dimer St... MAR NPO Diet EKG-12 Tessa... Cardiac mo... RT Consult... Microbiolo... R13? Link? Judith? 22 F? With Doctor? 7h 31m? 2-Emergent? ?? Psychiatric Symptoms? suicidal thoughts/x2 months? SA, SI, ?, Sign Out? 06/21/22 16:49? REG ER? Draft? Fran Nelson high risk 1:1 - Bhaskar Order BP 164/85 Pulse 94 Resp 20 Temp 98.0 F O2 Sat 96% (RA) Acetaminop... ?Complete B... ?Chem Free T4, D... Salicylate... ?Thyroid St... Ethanol (E... ?Urine Drug... POC/FABIOLA COVID19 -N... ?Urine Micr... MAR Consult to... Microbiolo... Imaging - CT angio chest PE protocol; XR chest 2V Marilia Craft??71??F??1950 ? Allergy/Adv: calcium, magnesium, potassium, sodium acetate (More??) Close Results Imaging ACTIVITY DATE EXAM STATUS AUTHOR 06/21/22 22:50 Chest CTA Signed Tera Lee 06/21/22 19:11 Chest X-Ray Signed Patria Pak Imaging Reports Close Chest CTA (Signed) Tera Lee - 06/21/22 Chest X-Ray (Signed) Patria Pak - 06/21/22 Launch?[place] [address] CT Scan Report Signed Patient: Marilia Craft MR#: [id number] : 1950 Acct:[id number] Age/Sex: 71 / F Date of Service: 06/21/22 Loc: ED Accession Number: [id number] ?? Procedure: CT angio chest PE protocol Ordering Provider: Fran Coughlin D.O. PROCEDURE:? CT ANGIO CHEST PE PROTOCOL ? INDICATIONS:? cough, SOB, fever, tachycardia, critical D Dimer ? TECHNIQUE:? After the administration of intravenous contrast, 2 mm thick sections acquired from the pulmonary apices to the posterior costophrenic angles.? 3-dimensional maximum intensity projection (MIP) coronal and sagittal reformats were then acquired through the thorax.? For radiation dose reduction, the following was used:? automated exposure control, adjustment of mA and/or kV according to patient size.? ? COMPARISON:? [facility], CR, XR CHEST 2V, 06/21/2022, 19:31. ? FINDINGS:? Image quality:? Excellent.? ? Pulmonary arteries:? Pulmonary arteries are normal in size, and demonstrate no intraluminal filling defects to suggest central pulmonary embolism.? ? Lower Neck: No lymphadenopathy by size criteria. Thyroid:? Visualized thyroid demonstrates no discrete nodules. Axillae: No lymphadenopathy by size criteria. Chest Wall:? There are bilateral breast implants which appear intact.? Bones: Visualized osseous structures demonstrate no suspicious lesions. ? Lungs and Airways:? No acute consolidation.? There is dependent atelectasis bilaterally.? No suspicious pulmonary nodules. The trachea and central airways are patent. Pleura: No pneumothorax or pleural effusions.? ? Heart: Heart size is normal.? No pericardial effusion. Thoracic Vessels: The thoracic aorta is normal in size.? Mediastinum and Nelly: No lymphadenopathy by size criteria. Esophagus: No wall thickening.? There is a small hiatal hernia. ? Abdomen:? Visualized upper abdominal solid organs appear normal in the early arterial phase of enhancement.? ? IMPRESSION:? ? 1. No evidence of pulmonary embolism. ? 2. No acute airspace consolidation.? ? ? Dictated by: Tera Lee M.D. on 06/22/2022 at 0:04 ? ? Approved by: Tera Lee M.D. on 06/22/2022 at 0:07? [facility] Narrative Medical decision making narrative: 71-year-old female with 3-4 days of upper respiratory symptoms including fever, hacking cough among others. She has a very reassuring physical exam and vitals other than slightly elevated heart rate. Labs demonstrate an elevated white blood cell count and chest x-ray is unremarkable. Respiratory panel demonstrated no positive findings and given her persistent cough with slight tachycardia a D-dimer was ordered which was elevated at [address] angiogram was ordered which thankfully demonstrated no evidence of a pulmonary embolism nor any obvious pulmonary infiltrate. We did elect to treat given her rather classic clinical presentation and elevated white blood cell count. She is given extensive return precautions and has had questions answered to her apparent satisfaction Discharge Plan Departure Patient Disposition: Home Clinical Impression: Pneumonia Instructions: DI for Pneumonia -- Adult Activity Restrictions/Additional Instructions: *You have been diagnosed with [pneumonia given your history and physical exam as well as elevated white blood cell count. As we discussed your chest x-ray and even CT scan did not show any significant findings such as large pneumonia or blood clot, however given your history and physical exam, as we discussed it is most reasonable to treat for community-acquired pneumonia] *What to do: *Please continue to take your regular medications as directed. [x ] New medication prescriptions sent to your pharmacy: [[facility] in [place] ] [ ] New medication written as a paper prescription [ ] No new medications given *Please follow up with your primary care provider in 2-3 days, call for an appointment. Let them know you were seen in the Emergency Department and that we ask that you be seen in follow up. We will electronically transmit a record of today's note if your PCP is in our system *Return to Emergency Department if you should have any new, worsening or concerning symptoms, such as [fever greater than 101 F, shaking chills, worsening pain, persistent vomiting or other bothersome symptoms] Prescriptions: New amoxicillin 500 mg capsule 1,000 mg PO Q8H 5 Days Qty: 30 0RF benzonatate 200 mg capsule 200 mg PO BID PRN (Reason: cough) Qty: 20 0RF promethazine-codeine 6.25-10 mg/5 mL syrup 5 ml PO Q4-6H PRN (Reason: cough) Qty: 473 0RF No Action aspirin 81 MG tablet,chewable 1 tab PO DAILY Qty: 0 losartan 100 MG tablet 100 mg PO QDAY Qty: 0 metoprolol tartrate 25 MG tablet 25 mg PO QDAY Qty: 0 BUPROPION HCL (WELLBUTRIN XL) 300 mg PO QDAY Qty: 0 estradiol [Estrace] 1 MG tablet 0.5 mg PO QDAY Qty: 0 lorazepam 0.5 MG tablet 0.5 mg PO Q4HP PRN (Reason: Anxiety) 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
[2022-06-21] MEDS: SODIUM CHLORIDE 0.9% 1,000 ML 1000 ML IV ×2 (19:23→22:42)
[2022-06-21 19:31] LABS: Add Manual Diff / Slide Review NO; Basophils Absolute Auto 100 /uL (0-100); Basophils Percent Auto 0.4 % (0-2); Eosinophils Absolute Auto 400 /uL (0-450); Eosinophils Percent Auto 2.4 % (2-4); Hematocrit 37.6 % (36-46); Hemoglobin 12.8 g/dL (12.0-16.0); Lymphocytes Absolute Auto 2100 /uL (1100-4500); Lymphocytes Percent Auto 13.6 % (25-40); Mean Corpuscular HGB Conc 34.2 % (30-36); Mean Corpuscular Hemoglobin 29.4 PG (26-34); Mean Corpuscular Volume 85.9 fL (80-100); Monocytes Absolute Auto 1100 /uL (0-900); Monocytes Percent Auto 7.3 % (3-14); Neutrophils Absolute Auto 11700 /uL (1500-7000); Neutrophils Percent Auto 76.3 % (50-75); Platelet Count 231 X10^3/uL (150-400); Red Blood Cell Count 4.38 X10^6/uL (4.0-5.2); Red Cell Distribution Width 13.7 % (11.6-14.8); White Blood Cell Count 15.3 X10^3/uL (4.5-11.0)
[2022-06-21 19:42] LABS: Alanine Aminotransferase 28 IU/L (<35); Albumin 4.1 g/dL (3.5-5.0); Albumin Globulin Ratio 1.1 (1.0-2.8); Alkaline Phosphatase 110 U/L (38-126); Aspartate Aminotransferase 26 IU/L (14-36); BUN Creatinine Ratio 16.5 (6-22); Bilirubin Total 0.6 mg/dL (0.2-1.3); Blood Urea Nitrogen 16 mg/dL (7-17); Calcium 8.8 mg/dL (8.4-10.2); Carbon Dioxide 26 mmol/L (22-32); Chloride 101 mmol/L (98-107); Estimated Glomerular Filt Rate > 60 mL/min (>60); Globulin 3.9 g/dL (1.7-4.1); Glucose 126 mg/dL (80-110); HEMOLYSIS < 15 (0-50); Lipase 40 U/L (23-300); Potassium 3.9 mmol/L (3.4-5.1); Sodium 138 mmol/L (137-145)
[2022-06-21 19:46] LABS: COVID19 -Nasal RAPID Negative (Negative)
[2022-06-21 19:58] LABS: Procalcitonin 0.13 ng/mL (<0.5)
[2022-06-21 21:37] LABS: Adenovirus Not Detected (Not Detect); B. parapertussis Not Detected (Not Detecte); Bordetella pertussis Not Detected (Not Detecte); Chlamydophila pneumoniae Not Detected (Not Detect); Coronavirus 229E Not Detected (Not Detect); Coronavirus HKU1 Not Detected (Not Detect); Coronavirus NL 63 Not Detected (Not Detect); Coronavirus OC43 Not Detected (Not Detect); Human Metapneumovirus Not Detected (Not Detect); Human Rhinovirus/Enterovirus Not Detected (Not Detect); Influenza A Not Detected (Not Detect); Influenza B Not Detected (Not Detect); Mycoplasma pneumoniae Not Detected (Not Detect); Parainfluenza Virus 1 Not Detected (Not Detect); Parainfluenza Virus 2 Not Detected (Not Detect); Parainfluenza Virus 3 Not Detected (Not Detect); Parainfluenza Virus 4 Not Detected (Not Detect); Respiratory Syncytial Virus Not Detected (Not Detect); SARS- CoV-2 Not Detected (Not Detecte)
[2022-06-21 22:41] LABS: D Dimer 2752 ng/ml (<500)
[2022-06-21] MEDS: ALBUTEROL/IPRATROPIUM 3 ML AMPUL INH (22:41)
[2022-06-21] MEDS: cefTRIAXone 1,000 MG in SODIUM CHLORIDE 0.9% 100 ML 200 MG IV (22:42)
--- NOTE | 2022-06-21 22:50 | DI.CT.S_ITS ---
PROCEDURE: CT ANGIO CHEST PE PROTOCOL INDICATIONS: cough, SOB, fever, tachycardia, critical D Dimer TECHNIQUE: After the administration of intravenous contrast, 2 mm thick sections acquired from the pulmonary apices to the posterior costophrenic angles. 3-dimensional maximum intensity projection (MIP) coronal and sagittal reformats were then acquired through the thorax. For radiation dose reduction, the following was used: automated exposure control, adjustment of mA and/or kV according to patient size. COMPARISON: [facility], CR, XR CHEST 2V, 06/21/2022, 19:31. FINDINGS: Image quality: Excellent. Pulmonary arteries: Pulmonary arteries are normal in size, and demonstrate no intraluminal filling defects to suggest central pulmonary embolism. Lower Neck: No lymphadenopathy by size criteria. Thyroid: Visualized thyroid demonstrates no discrete nodules. Axillae: No lymphadenopathy by size criteria. Chest Wall: There are bilateral breast implants which appear intact. Bones: Visualized osseous structures demonstrate no suspicious lesions. Lungs and Airways: No acute consolidation. There is dependent atelectasis bilaterally. No suspicious pulmonary nodules. The trachea and central airways are patent. Pleura: No pneumothorax or pleural effusions. Heart: Heart size is normal. No pericardial effusion. Thoracic Vessels: The thoracic aorta is normal in size. Mediastinum and Nelly: No lymphadenopathy by size criteria. Esophagus: No wall thickening. There is a small hiatal hernia. Abdomen: Visualized upper abdominal solid organs appear normal in the early arterial phase of enhancement. IMPRESSION: 1. No evidence of pulmonary embolism. 2. No acute airspace consolidation. Dictated by: Tera Lee M.D. on 06/22/2022 at 0:04 Approved by: Tera Lee M.D. on 06/22/2022 at 0:07
[2022-06-22] VITALS: BP 119/58; PULSE 101; RESP 22; O2SAT 96
[2022-06-22 00:20] VITALS: TEMP 37.1
[2022-06-22] MEDS: ALBUTEROL HFA PREPACK 1 BOX MISC (00:28)
[2022-06-22] MEDS: ACETAMINOPHEN/CODEINE SOLN 5 ML SOLUTION 10 ML PO (00:31)
== END 2022-06-22 00:40 | disposition home or self-care (01) ==
PROVIDERS: Emergency Provider Emergency Medicine; Family Provider Family Medicine; PCP Family Medicine
DX: J18.9 Pneumonia, unspecified organism (principal); R00.0 Tachycardia, unspecified; Z20.822 Contact with and (suspected) exposure to COVID-19
CPT/HCPCS: 36415; 71046; 71275; 80053; 83605; 83690; 84145; 85025; 85379; 87040; 87633; 87635; 87880; 93005; 93010; 94640; 96361; 96365; 99284; C9803; J0696; Q9967

== ENCOUNTER → 2022-08-21 08:06 | Outpatient (CLI) | payer OTHER, SELFPAY ==
--- NOTE | 2022-08-21 | DI.RAD.S_ITS ---
PROCEDURE: FL HIP INJECTION MR/CT RT INDICATIONS: FEMORACETABULAR IMPINGEMENT TECHNIQUE: The indications, alternatives, benefits, risks, and complications of the procedure were explained to the patient. Written informed consent was obtained and placed in the chart. The hip was examined fluoroscopically with the legs fixed in slight internal rotation, and a site for needle placement chosen for entry into the hip joint from an anterior approach. Care was taken to locate the common femoral artery and vein beforehand. The skin was prepped and draped in a sterile fashion, and 1% Lidocaine infiltrated from skin down to joint capsule. A spinal needle was inserted into the joint, and a small amount of iodinated contrast media injected to confirm intra-articular placement of the needle tip. This was followed by approximately 10 mL dilute solution of a gadolinium containing MR contrast agent. The needle was removed and a dressing was applied. The patient was given postprocedural instructions and sent to the MR suite for imaging. COMPARISON: [facility], , MR HIP RT W CON, 08/21/2022, 8:52. FINDINGS: A single fluoroscopic spot image demonstrates intra-articular location of injected iodinated contrast. IMPRESSION: Successful fluoroscopically guided administration of dilute Gadolinium solution into the hip joint for MR arthrogram. Dictated by: Pia Santana M.D. on 08/21/2022 at 10:14 Approved by: Pia Santana M.D. on 08/21/2022 at 10:14
--- NOTE | 2022-08-21 | DI.MRI.S_ITS ---
PROCEDURE: MR HIP RT W CON INDICATIONS: FEMORACETABULAR IMPINGEMENT TECHNIQUE: After the administration of 10 mL of dilute intra-articular Gadolinium contrast, coronal STIR of the bony pelvis; coronal and oblique axial T1 spin echo with fat saturation, axial T2 fast spin echo with fat saturation, sagittal T1 spin echo with and without fat saturation of the involved hip. COMPARISON: [facility], MR, MR HIP RT W CON, 07/31/2021, 14:57. FINDINGS: Image quality: Excellent. Bones and joints: There is asymmetric superior right hip joint space narrowing, subchondral sclerosis and prominent lateral marginal osteophyte formation which can be seen associated with pincer type femoral acetabular impingement. No marrow edema. No intraosseous lesions or fractures. No avascular necrosis of the femoral head. The visualized lower lumbar spine appears normally aligned. The ligamental, neck, and labral plicae appear normal where visualized. Tendons and ligaments: There is low-grade partial thickness tear involving distal right gluteus minimus tendon and muscles at their insertion on greater trochanter. Distal right gluteus medius tendinosis at its insertion on greater trochanter is also seen. The nearby proximal iliotibial band also appears intact. The iliopsoas tendon appears intact, without adjacent bursal fluid collections or evidence for impingement syndrome. The origin of the hamstring tendon is intact at the ischial tuberosity, as well as the associated sacrotuberous ligament. The straight and reflected heads of the rectus femoris muscle origin appear intact, as well as the conjoint tendon. The ligamentum teres appears intact where visualized. Labrum and cartilage: there is signal abnormality and contour Car irregularity involving superior anterior labrum at 12 to 1 o'clock position. tilage surface of the femoral head appears thinned. No paralabral cysts. The alpha angle of the femur is within normal limits at less than 55 degrees. Soft tissues: Visualized muscles demonstrate normal bulk and internal signal. Quadratus femoris muscle demonstrates no internal edema to suggest ischiofemoral impingement. The proximal sciatic neurovascular bundle appears normal adjacent to the hamstring tendons. No free pelvic fluid. Bladder wall thickness is normal. Genitourinary structures and bowel loops appear normal where visualized. IMPRESSION: 1. Right worse than left bilateral hip joint osteoarthritis . No fracture or dislocation. No evidence of avascular necrosis. Prominent lateral marginal osteophyte formation which can be seen associated with pincer type femoral acetabular impingement. 2. Low-grade partial-thickness tear involving distal right gluteus minimus tendon and muscle near greater trochanter. Low-grade tendinosis involving distal right gluteus medius at greater trochanter. No other muscle or tendon signal abnormalities. 3. Suggestion of superior anterior right hip labral tear at 12 to 1 o'clock position. Dictated by: Naresh Crowell M.D. on 08/21/2022 at 14:08 Approved by: Naresh Crowell M.D. on 08/21/2022 at 14:10
== END ==
PROVIDERS: Family Provider Family Medicine; PCP Family Medicine; Referring Provider Orthopaedic Surgery; Visit Provider Orthopaedic Surgery
DX: S76.011A Strain of muscle, fascia and tendon of right hip, initial encounter (principal); M25.551 Pain in right hip; M16.0 Bilateral primary osteoarthritis of hip; M25.859 Other specified joint disorders, unspecified hip
CPT/HCPCS: 27093; 73722; 77002

== ENCOUNTER → 2022-08-26 08:12 | Outpatient (CLI) | payer OTHER, SELFPAY ==
--- NOTE | 2022-08-26 | DI.RAD.S_ITS ---
PROCEDURE: XR CHEST 2V INDICATIONS: Pneumonia, unspecified organism TECHNIQUE: 2 views of the chest were acquired. COMPARISON: [facility], CT, CT ANGIO CHEST PE PROTOCOL, 06/21/2022, 22:58. [facility], CR, XR CHEST 2V, 06/21/2022, 19:31. [facility], CR, CHEST FOR PICC PLACEMENT, 06/26/2013, 21:47. FINDINGS: Surgical changes and devices: Clips in the right upper abdomen Lungs and pleura: Lungs are clear. No pleural effusions or pneumothorax. Mediastinum: Mediastinal contours are normal. Heart size is normal. Bones and chest wall: No suspicious bony abnormalities. Soft tissues appear unremarkable. IMPRESSION: No acute cardiopulmonary abnormality identified. Dictated by: Panda Hightower M.D. on 08/26/2022 at 10:38 Approved by: Panda Hightower M.D. on 08/26/2022 at 10:40
== END ==
PROVIDERS: Family Provider Family Medicine; PCP Family Medicine; Referring Provider Family Medicine; Visit Provider Family Medicine
DX: J18.9 Pneumonia, unspecified organism (principal)
CPT/HCPCS: 71046

== ENCOUNTER → 2023-02-01 08:03 | Outpatient (CLI) | payer OTHER, SELFPAY ==
--- NOTE | 2023-02-01 | DI.MG.S_ITS ---
BILATERAL DIGITAL SCREENING MAMMOGRAM 3D/2D WITH CAD WITH AUGMENTATION: 02/01/2023 CLINICAL: Routine screening. Family history of breast cancer. Comparison is made to exams dated: 01/13/2022 mammogram, 12/11/2020 mammogram, and 08/17/2019 mammogram - [facility]. There are scattered areas of fibroglandular density in both breasts (category b / 25%-50% glandular tissue). Current study was also evaluated with a Computer Aided Detection (CAD) system. Bilateral breast implants are stable and intact. There are benign calcifications in the left breast. No significant masses, calcifications, or other findings are seen in either breast. There has been no significant interval change. IMPRESSION: BENIGN There is no mammographic evidence of malignancy. A 1 year screening mammogram is recommended. Based on the Tyrer Cuzick model (a risk assessment model) the patient's lifetime risk is 5.5% and her 10 year risk is 3.8%. According to the ACR, ACS, and NCCN guidelines, an annual breast MRI exam along with mammogram is recommended if the patient's lifetime risk is 20% or greater. This exam was interpreted at Station ID: [id number]. NOTE: For mammograms, a report in lay terms will be sent to the patient. Approximately 15% of breast malignancies will not be visualized mammographically. In the management of a palpable breast mass, a negative mammogram must not discourage biopsy of a clinically suspicious lesion. Electronically Signed By: Jose flores/davon:02/01/2023 11:01:22 letter sent: Normal Exam ACR BI-RADS Category 2: Benign Finding(s) 3342F
== END ==
PROVIDERS: Family Provider Family Medicine; PCP Family Medicine; Referring Provider Family Medicine; Visit Provider Family Medicine
DX: Z12.31 Encounter for screening mammogram for malignant neoplasm of breast (principal); Z80.3 Family history of malignant neoplasm of breast
CPT/HCPCS: 77063; 77067

== ENCOUNTER → 2023-08-04 09:37 | Outpatient (CLI) | payer OTHER, SELFPAY ==
--- NOTE | 2023-08-04 09:38 | DI.RAD.S_ITS ---
Bone Density Report Name: YONAS ALEX Age: 72 Sex: Female Ethnicity: White Date of : 1950 Indication: postmenopausal; screening for osteoporosis; Referring Provider: RAEGAN SWANSON Study: Bone densitometry was performed. Exam Date: August 04, 2023 Accession number: [id number] Bone Density: Region BMD T-score Z-score Classification AP Spine(L1-L4) 1.299 2.3 4.5 Normal Femoral Neck (Left) 1.013 1.5 3.4 Normal Total Hip (Left) 1.117 1.4 3.0 Normal Total Forearm (Left) 0.666 1.6 3.8 Normal 1/3 Forearm (Left) 0.751 0.9 3.2 Normal UD Forearm (Left) 0.534 1.6 3.2 Normal World Health Organization criteria for BMD impression classify patients as: Normal (T-score at or above -1.0), Osteopenia (T-score between -1.0 and -2.5), or Osteoporosis (T-score at or below -2.5). 10-year Fracture Risk: FRAX not reported because: All T-scores for Spine Total, Hip Total, Femoral Neck at or above -1.0 Previous Exams: -- Region Exam Age BMD T-score BMD Change BMD Change Date g/cm2 vs Baseline vs Previous -- AP Spine (L1-L4) 08/04/2023 72 1.299 2.3 -0.101 (-7.2%)# -0.081 (-5.9%)# 07/19/2018 67 1.379 3.0 -0.020 (-1.4%) -0.005 (-0.4%) 02/19/2012 61 1.385 3.1 -0.014 (-1.0%) -0.014 (-1.0%) 02/10/2008 57 1.399 3.2 Total Hip(Left) 08/04/2023 72 1.117 1.4 0.020 (1.8%)# 0.005 (0.5%)# 07/19/2018 67 1.112 1.4 0.014 (1.3%) -0.043 (-3.8%)* 02/19/2012 61 1.155 1.7 0.058 (5.3%)* 0.058 (5.3%)* 02/10/2008 57 1.098 1.3 -- *Denotes significance at 95% confidence level, LSC for AP Spine = 0.022 g/cm2, LSC for Total Hip = 0.027 g/cm2 # Denotes dissimilar scan types or analysis methods Impression: The patient has normal bone mass. No significant bone loss was observed. Discussion: LOW RISK OF FRACTURE; BONE DENSITY IS WELL ABOVE THE MINIMUM DESIRABLE LEVEL AND ABOVE AVERAGE FOR AGE AND SEX AT ALL SKELETAL SITES TESTED. This person's bone density is above expected limits for age and sex. This is rarely clinically significant, but should be pursued if there are significant musculoskeletal complaints. The patient should follow a healthful lifestyle (good nutrition with adequate calcium and vitamin D, and appropriate weight-bearing exercise). Follow-Up: Consider repeating this study in 5 years or sooner if there is some new clinical indication. Reported by: RICHARD BLUM M.D. on 08/04/2023 10:10:00 AM.
== END ==
PROVIDERS: Family Provider Family Medicine; PCP Family Medicine; Referring Provider Family Medicine; Visit Provider Family Medicine
DX: Z13.820 Encounter for screening for osteoporosis (principal); Z78.0 Asymptomatic menopausal state
CPT/HCPCS: 77080; 77081

== ENCOUNTER → 2024-02-23 07:51 | Outpatient (CLI) | payer MEDICARE, SELFPAY ==
--- NOTE | 2024-02-23 07:54 | DI.MG.S_ITS ---
BILATERAL DIGITAL SCREENING MAMMOGRAM 3D/2D WITH CAD WITH AUGMENTATION: 02/23/2024 CLINICAL: Routine screening. Family history of breast cancer. Comparison is made to exams dated: 02/01/2023 mammogram, 01/13/2022 mammogram, and 12/11/2020 mammogram - [facility]. There are scattered areas of fibroglandular density in both breasts (category b / 25%-50% glandular tissue). Current study was also evaluated with a Computer Aided Detection (CAD) system. Bilateral breast implants are stable and intact. No significant masses, calcifications, or other findings are seen in either breast. There has been no significant interval change. IMPRESSION: BENIGN There is no mammographic evidence of malignancy. A 1 year screening mammogram is recommended. Based on the Tyrer Cuzick model (a risk assessment model) the patient's lifetime risk is 5.2% and her 10 year risk is 3.9%. According to the ACR, ACS, and NCCN guidelines, an annual breast MRI exam along with mammogram is recommended if the patient's lifetime risk is 20% or greater. This exam was interpreted at Station ID: [id number]. NOTE: For mammograms, a report in lay terms will be sent to the patient. Approximately 15% of breast malignancies will not be visualized mammographically. In the management of a palpable breast mass, a negative mammogram must not discourage biopsy of a clinically suspicious lesion. Electronically Signed By: Madalyn Dillard M.D., Ph.D. kolby/davon:02/23/2024 09:03:34 letter sent: Normal Exam ACR BI-RADS Category 2: Benign Finding(s) 3342F
== END ==
PROVIDERS: Family Provider Family Medicine; PCP Family Medicine; Referring Provider Family Medicine; Visit Provider Family Medicine
DX: Z12.31 Encounter for screening mammogram for malignant neoplasm of breast (principal); Z80.3 Family history of malignant neoplasm of breast; R92.323 Mammographic fibroglandular density, bilateral breasts; Z98.82 Breast implant status
CPT/HCPCS: 77063; 77067

== ENCOUNTER → 2024-11-09 09:28 | Outpatient (CLI) | payer MEDICARE, SELFPAY | PROVIDERS: Family Provider Family Medicine; PCP Family Medicine; Referring Provider Family Medicine; Visit Provider Family Medicine | DX: R20.0 Anesthesia of skin (principal); R20.2 Paresthesia of skin | CPT/HCPCS: 95885; 95886; 95912 ==

== ENCOUNTER → 2024-12-06 13:29 | Outpatient (CLI) | payer MEDICARE, SELFPAY ==
--- NOTE | 2024-12-06 13:35 | DI.RAD.S_ITS ---
PROCEDURE: XR SHOULDER RT MIN 2V INDICATIONS: ACUTE RIGHT SHOULDER PAIN TECHNIQUE: 3 views of the shoulder were acquired. COMPARISON: None. FINDINGS: Bones: Moderate degenerative changes the acromioclavicular joint. Joint space of the glenohumeral joint is well maintained. 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 No acute fracture or dislocation. Soft tissues: No suspicious soft tissue calcifications. IMPRESSION: No acute bony abnormality. Dictated by: Shelby Escobedo M.D. on 12/06/2024 at 16:18 Approved by: Shelby Escobedo M.D. on 12/06/2024 at 16:20
--- NOTE | 2024-12-06 13:36 | DI.RAD.S_ITS ---
PROCEDURE: XR HAND RT MIN 3V INDICATIONS: PAIN TECHNIQUE: 3 views of the hand(s) acquired. COMPARISON: None. FINDINGS: Bones: No acute fracture or dislocation. Joint spaces are well maintained. Soft tissues: No suspicious soft tissue calcifications. IMPRESSION: No acute bony abnormality. Dictated by: Shelby Escobedo M.D. on 12/06/2024 at 16:16 Approved by: Shelby Escobedo M.D. on 12/06/2024 at 16:18
== END ==
LOC: RAD 13:33
PROVIDERS: Family Provider Family Medicine; PCP Family Medicine; Referring Provider Family Medicine; Visit Provider Family Medicine
DX: M79.641 Pain in right hand (principal); M25.511 Pain in right shoulder; M79.644 Pain in right finger(s)
CPT/HCPCS: 73030; 73130

== ENCOUNTER → 2025-03-06 06:57 | Outpatient (CLI) | payer MEDICARE, SELFPAY ==
--- NOTE | 2025-03-06 | DI.US.S_ITS ---
PROCEDURE: US THYROID INDICATIONS: ABNORMAL THYROID LABS TECHNIQUE: Real-time scanning was performed of the thyroid gland, with image documentation. Twenty-six images COMPARISON: None. FINDINGS: Thyroid: Right lobe measures 3.8 x 1.4 x 1.0 cm. Left lobe measures 3.7 x 1.0 x 1.0 cm. Isthmus is 4 mm thick. Echotexture is heterogeneous, hypoechoic with diffuse increased vascularity, color Doppler flow which is nonspecific but may be related to thyroiditis or other process. No ultrasound evidence of focal nodule. IMPRESSION: No ultrasound evidence of focal nodule. Diffuse heterogeneous thyroid with a diffuse increased vascularity suggestive of thyroiditis or other process. TI-RADS 1 (benign): 0 points. FNA not needed. ACR TI-RADS definitions and recommendations: TI-RADS 1 (benign): 0 points. FNA not needed. TI-RADS 2 (not suspicious): 2 points. FNA not needed. TI-RADS 3: 3 points. * FNA if 2.5 cm or larger, follow up if 1.5 cm or larger (at 1, 3, and 5 years). TI-RADS 4: 4-6 points. * FNA if 1.5 cm or larger, follow up if 1 cm or larger (at 1, 2, 3, and 5 years). TI-RADS 5: 7 points or more. * FNA if 1 cm or larger, follow up if 0.5 cm or larger (every year for 5 years). Dictated by: Kevin Ryan M.D. on 03/06/2025 at 13:37 Approved by: Kevin Ryan M.D. on 03/06/2025 at 13:42
== END ==
PROVIDERS: Family Provider Family Medicine; PCP Family Medicine; Referring Provider Family Medicine; Visit Provider Family Medicine
DX: R79.89 Other specified abnormal findings of blood chemistry (principal)
CPT/HCPCS: 76536

== ENCOUNTER → 2025-03-14 10:58 | Outpatient (CLI) | payer MEDICARE, SELFPAY ==
[2025-03-14 13:55] LABS: Appearance Urine UA CLEAR; Bilirubin Urine UA NEGATIVE (NEGATIVE); Color Urine UA YELLOW; Glucose Urine UA NEGATIVE (Negative); Ketones Urine UA NEGATIVE (NEGATIVE); Leukocyte Esterase Urine UA NEGATIVE (NEGATIVE); Nitrite Urine UA NEGATIVE (Negative); Occult Blood Urine UA NEGATIVE (Negative); Protein Urine UA TRACE (Negative); Specific Gravity Urine UA 1.025 (1.000-1.035); Urobilinogen Urine UA 0.2 E.U./dL (0.2)
[2025-03-14 14:03] LABS: Bacteria Urine None Seen; Culture Indicated Urine Cult Not Indicated; RBC Urine None Seen (0-5/HPF); Squamous Epithelial Cell Urine None Seen (0-5/HPF); Urine Volume 10mL (spun); WBC Urine None Seen (0-5/HPF)
== END ==
LOC: LAB 10:59
PROVIDERS: Family Provider Family Medicine; PCP Family Medicine; Visit Provider Obstetrics & Gynecology Gynecology
DX: R32 Unspecified urinary incontinence (principal)
CPT/HCPCS: 81001

== ENCOUNTER → 2025-05-10 07:54 | Outpatient (CLI) | payer MEDICARE, SELFPAY ==
--- NOTE | 2025-05-10 07:57 | DI.MG.S_ITS ---
MM screening mammo implant BI: 05/10/2025. BI-RADS: 1 CLINICAL: 74-year old female for bilateral screening mammogram. Tyrer-Cuzick lifetime risk of 8.6%. Current reported family history of breast cancer: sister, second sister and third sister. History of ovarian cancer in one first-degree relative. The patient has bilateral implants. The patient is status-post reduction mammoplasty. PRIOR EXAMS 02/23/2024, 02/01/2023, 01/13/2022, 12/11/2020, 07/06/2017. MAMMOGRAPHY TECHNIQUE: 2D and 3D (tomosynthesis) digital mammographic views obtained, with additional images as needed for full coverage. Current study was also evaluated with a Computer Aided Detection (CAD) system. DENSITY B. There are scattered areas of fibroglandular density. IMPLANTS Breast implants present. MAMMOGRAPHY FINDINGS Bilateral: No suspicious mass, asymmetry, microcalcification, or other abnormality seen. No significant change from comparison. IMPRESSION: * No evidence of malignancy. RECOMMENDATIONS Bilateral * Annual screening mammography. OVERALL ASSESSMENT CATEGORY BI-RADS-1: Negative. The [employer] recommends annual screening mammography beginning at age 40 for women with average risk of breast cancer. ELECTRONICALLY SIGNED: Riddhi Rizo M.D. on 05/10/2025 at 01:23:50 PM PT Interpreting Station ID: [id number]
== END ==
LOC: MAMMO 07:55
PROVIDERS: Family Provider Family Medicine; PCP Family Medicine; Referring Provider Family Medicine; Visit Provider Family Medicine
DX: Z12.31 Encounter for screening mammogram for malignant neoplasm of breast (principal); Z80.41 Family history of malignant neoplasm of ovary; Z98.82 Breast implant status
CPT/HCPCS: 77063; 77067